=== PATIENT | male | born 1975 | race Caucasian/White ===

== ENCOUNTER 2023-04-04 10:08 | Outpatient (CLI) | payer OTHER, SELFPAY | END 2023-04-04 10:09 | disposition home or self-care (01) | PROVIDERS: PCP Family Medicine; Visit Provider Family Medicine | DX: Z00.00 Encounter for general adult medical examination without abnormal findings (principal); I10 Essential (primary) hypertension; Z12.5 Encounter for screening for malignant neoplasm of prostate | CPT/HCPCS: 80048; 84153 ==

== ENCOUNTER 2024-12-27 09:25 | Outpatient (CLI) | payer OTHER, SELFPAY | END 2024-12-27 09:26 | disposition home or self-care (01) | PROVIDERS: PCP Family Medicine; Visit Provider Family Medicine | DX: R07.89 Other chest pain (principal); Z12.5 Encounter for screening for malignant neoplasm of prostate; Z13.6 Encounter for screening for cardiovascular disorders; Z13.9 Encounter for screening, unspecified | CPT/HCPCS: 80048; 80061; G0103 ==

== ENCOUNTER 2025-08-01 11:44 | Outpatient (CLI) | payer OTHER, SELFPAY ==
--- NOTE | 2025-08-01 13:16 | P.ANES_ITS ---
Anesthesia Charges Start Date/Time Anesthesia Start Date: 08/01/25 Anesthesia Start Time: 12:20 Stop Date/Time Anesthesia Stop Date: 08/01/25 Anesthesia Stop Time: 13:12 Coding CPT Codes CPT Codes: ALONSO LWR INTST NDSC NOS - [id number] ([id number]) P2 - PATIENT W/MILD SYST DISEASE, QK - EQUIPMENT VALIDATION ENGINEER 2-4 CNCRNT ANES PROC, QX - FOOD AND BEVERAGE INTERN SVC W/ MD MED DIRECTION
--- NOTE | 2025-08-01 13:16 | W.ANESCHARGE ---
Anesthesia Charges Start Date/Time Anesthesia Start Date: 08/01/25 Anesthesia Start Time: 12:20 Stop Date/Time Anesthesia Stop Date: 08/01/25 Anesthesia Stop Time: 13:12 Coding CPT Codes CPT Codes: ALONSO LWR INTST NDSC NOS - [id number] ([id number]) P2 - PATIENT W/MILD SYST DISEASE, QK - CLERICAL ASSIGNER 2-4 CNCRNT ANES PROC, QX - PATTERNMAKER PLASTER AND PLASTIC SVC W/ MD MED DIRECTION
--- NOTE | 2025-08-01 13:25 | P.ANES_ITS ---
Anesthesia Charges Start Date/Time Anesthesia Start Date: 08/01/25 Anesthesia Start Time: 12:20 Stop Date/Time Anesthesia Stop Date: 08/01/25 Anesthesia Stop Time: 13:12 Coding CPT Codes CPT Codes: ALONSO LWR INTST NDSC NOS - [id number] ([id number]) P2 - PATIENT W/MILD SYST DISEASE, QK - HELMET HAT SWEATBAND PUNCHER 2-4 CNCRNT ANES PROC, QX - REHABILITATION CENTER MANAGER SVC W/ MD MED DIRECTION
--- NOTE | 2025-08-01 13:25 | W.ANESCHARGE ---
Anesthesia Charges Start Date/Time Anesthesia Start Date: 08/01/25 Anesthesia Start Time: 12:20 Stop Date/Time Anesthesia Stop Date: 08/01/25 Anesthesia Stop Time: 13:12 Coding CPT Codes CPT Codes: ALONSO LWR INTST NDSC NOS - [id number] ([id number]) P2 - PATIENT W/MILD SYST DISEASE, QK - TIMBER FRAMER 2-4 CNCRNT ANES PROC, QX - FIREARMS ASSEMBLY SUPERVISOR SVC W/ MD MED DIRECTION
== END 2025-08-01 11:45 | disposition home or self-care (01) ==
LOC: OP CLINIC 11:45
PROVIDERS: PCP Family Medicine; Visit Provider Surgery
DX: Z12.11 Encounter for screening for malignant neoplasm of colon (principal); Z86.0100 Personal history of colon polyps, unspecified; D12.2 Benign neoplasm of ascending colon; D12.7 Benign neoplasm of rectosigmoid junction
CPT/HCPCS: 00811; 00812; 45385; 88305; J2704